=== PATIENT | female | born 1955 | race Caucasian/White ===

== ENCOUNTER 2016-09-12 15:31 | Inpatient (IN) | payer OTHER ==
[~2016-09-12] VITALS: Ht 167.6 cm; Wt 77.6 kg
[~2016-09-12 15:31] MED LIST: ASPI81TA82 PO; NOVOLOGSS SQ; PRIN5TAB PO; ZOFR4TAB3 SL
[2016-09-12 15:36] VITALS: BP 146/83; PULSE 120; RESP 22; O2SAT 100
[2016-09-12] MEDS ORDERED: SODIUM CHLOR 0.9% 1000 ML INJ 1,000 ML IV SCH (15:40)
[2016-09-12] MEDS ORDERED: SODIUM CHLORIDE 0.9% FLUSH 10 ML FLUSH IV FLUSH PRN ×2 (15:45→23:00)
[2016-09-12] MEDS ORDERED: METOCLOPRAMIDE HCL 10 MG/2 ML VIAL IV PUSH ONE (15:45)
[2016-09-12 16:11] LABS: AUTOMATED NEUTROPHIL # 5.9 TH/MM3 (1.8-7.7); BASOPHIL % 0.4 % (0.0-2.0); EOSINOPHIL % 0.3 % (0.0-4.0); HEMATOCRIT 36.2 % (35.0-46.0); HEMO FLAGS DIFF FINAL; LYMPH % 13.1 % (9.0-44.0); MEAN CELL VOLUME 101.1 FL (80.0-100.0); MEAN CORPUSCULAR HEMOGLOBIN 33.6 PG (27.0-34.0); MEAN CORPUSCULAR HGB CONC 33.2 % (32.0-36.0); NEUT % 79.2 % (16.0-70.0); PLATELET COUNT 177 TH/MM3 (150-450); RED BLOOD COUNT 3.58 MIL/MM3 (4.00-5.30); RED CELL DISTRIBUTION WIDTH 13.9 % (11.6-17.2); WHITE BLOOD COUNT 7.4 TH/MM3 (4.0-11.0)
[2016-09-12 16:26] LABS: APTT (PATIENT) 23.5 SEC (24.3-30.1); INTERNATIONAL NORMALIZED RATIO 0.9 RATIO; PROTHROMBIN TIME - PATIENT 10.3 SEC (9.8-11.6)
[2016-09-12 16:27] LABS: ANION GAP 17 MEQ/L (5-15); AST (GOT) 29 U/L (15-37); BICARBONATE 19.5 MEQ/L (21.0-32.0); BLOOD UREA NITROGEN 13 MG/DL (7-18); CHLORIDE 95 MEQ/L (98-107); GLOMERULAR FILTRATION RATE 57 ML/MIN (>89); POTASSIUM 4.4 MEQ/L (3.5-5.1); SODIUM (NA) 131 MEQ/L (136-145)
[2016-09-12 16:30] LABS: ALKALINE PHOSPHATASE 54 U/L (45-117); ALT (GPT) 25 U/L (10-53); TOTAL BILIRUBIN ADULT 1.6 MG/DL (0.2-1.0)
--- NOTE | 2016-09-12 16:32 | PD ---
HPI Chief Complaint: GI Complaint Time Seen by Provider: 15:36 Travel History International Travel<30 days: No Contact w/Intl Traveler<30days: No Traveled to known affect area: No History of Present Illness HPI Patient's 7-year-old female with a history of diabetes presents emergency Department with intractable nausea and vomiting. Patient states she's been taking Zofran at home without any relief. She states started fairly suddenly this morning. She has a history of gastroparesis. Patient denies any abdominal pain denies any fevers. On arrival she is actively retching dry heaves. She did receive Zofran in route by EMS. Denies any blood in the emesis or blood in the stool she does also endorse diarrhea. PFSH Past Medical History Cardiovascular Problems: Yes (LBBB) High Cholesterol: Yes Diabetes: Yes Patient Takes Glucophage: No Diminished Hearing: No ?: Not Menopausal: Yes Tubal Ligation: Yes Past Surgical History Section: Yes Tonsillectomy: Yes Social History Alcohol Use: Yes (OCC) Tobacco Use: No Substance Use: No Allergies-Medications (Allergen,Severity, Reaction): Coded Allergies: Iodine (Verified Allergy, Mild, Nausea/Vomiting, 07/27/15) Uncoded Allergies: SHELLFISH (Allergy, Mild, Nausea/Vomiting, 02/07/03) Reported Meds & Prescriptions Reported Meds & Active Scripts Active Zofran ODT (Ondansetron HCl) 4 Mg Tab 4 Mg SL Q6H PRN FOR NAUSEA/VOMITING Reported Novolog Insulin Supplemental Scale (Insulin Aspart) 100 /Ml Inj 1-9 Units SQ TIDACHS Max dose at bedtime:( )units; sugars less than 70, (0)units; sugars 150-199, (1)units; sugars 200-249, (3)units; sugars 250-299, (5)units; sugars 300-349,(7)units; sugars greater than 349, (9)units Aspir-81 (Aspirin) 81 Mg Tab 81 Mg PO DAILY Prinivil (Lisinopril) 5 Mg Tab 5 Mg PO DAILY Review of Systems Except as stated in HPI: all other systems reviewed are Neg Physical Exam Narrative GENERAL: Well-developed well-nourished, dry heaves. SKIN: No rash no wound. HEAD: Atraumatic. Normocephalic. EYES: Pupils equal and round. No scleral icterus. No injection or drainage. ENT: No nasal bleeding or discharge. Mucous membranes pink and moist. NECK: Trachea midline. No JVD. CARDIOVASCULAR: Regular rate and rhythm. No murmur appreciated. RESPIRATORY: No accessory muscle use. Clear to auscultation. Breath sounds equal bilaterally. GASTROINTESTINAL: Abdomen soft, non-tender, nondistended. Hepatic and splenic margins not palpable. Bowel sounds normoactive. No rebound no percussive tenderness. MUSCULOSKELETAL: No obvious deformities. No clubbing. No cyanosis. No edema. NEUROLOGICAL: Awake and alert. No obvious cranial nerve deficits. Motor grossly within normal limits. Normal speech. PSYCHIATRIC: Appropriate mood and affect; insight and judgment normal. Data Data Last Documented VS Vital Signs Date Time Temp Pulse Resp B/P Pulse Ox O2 Delivery O2 Flow Rate FiO2 09/12/16 15:45 24 09/12/16 15:36 120 146/83 100 Orders Complete Blood Count With Diff (09/12/16 15:40) Comprehensive Metabolic Panel (09/12/16 15:40) Lactic Acid (09/12/16 15:40) Prothrombin Time / Inr (Pt) (09/12/16 15:40) Act Partial Throm Time (Ptt) (09/12/16 15:40) Urinalysis - C+S If Indicated (09/12/16 15:40) Iv Access Insert/Monitor (09/12/16 15:40) Ecg Monitoring (09/12/16 15:40) Oximetry (09/12/16 15:40) Sodium Chlor 0.9% 1000 Ml Inj (Ns 1000 M (09/12/16 15:40) Sodium Chloride 0.9% Flush (Ns Flush) (09/12/16 15:45) Electrocardiogram (09/12/16 15:40) Metoclopramide Inj (Reglan Inj) (09/12/16 15:45) Ct Abd/Pel W Iv Contrast(Rout) (09/12/16 ) Diphenhydramine Inj (Benadryl Inj) (09/12/16 17:00) Methylprednisolone So Succ Inj (Solumedr (09/12/16 17:00) Sodium Chlor 0.9% 1000 Ml Inj (Ns 1000 M (09/12/16 17:00) Iohexol 350 Inj (Omnipaque 350 Inj) (09/12/16 19:13) Labs Laboratory Tests Test 09/12/16 15:52 White Blood Count 7.4 TH/MM3 Red Blood Count 3.58 MIL/MM3 Hemoglobin 12.0 GM/DL Hematocrit 36.2 % Mean Corpuscular Volume 101.1 FL Mean Corpuscular Hemoglobin 33.6 PG Mean Corpuscular Hemoglobin 33.2 % Concent Red Cell Distribution Width 13.9 % Platelet Count 177 TH/MM3 Mean Platelet Volume 9.4 FL Neutrophils (%) (Auto) 79.2 % Lymphocytes (%) (Auto) 13.1 % Monocytes (%) (Auto) 7.0 % Eosinophils (%) (Auto) 0.3 % Basophils (%) (Auto) 0.4 % Neutrophils # (Auto) 5.9 TH/MM3 Lymphocytes # (Auto) 1.0 TH/MM3 Monocytes # (Auto) 0.5 TH/MM3 Eosinophils # (Auto) 0.0 TH/MM3 Basophils # (Auto) 0.0 TH/MM3 CBC Comment DIFF FINAL Differential Comment Prothrombin Time 10.3 SEC Prothromb Time International 0.9 RATIO Ratio Activated Partial 23.5 SEC Thromboplast Time Sodium Level 131 MEQ/L Potassium Level 4.4 MEQ/L Chloride Level 95 MEQ/L Carbon Dioxide Level 19.5 MEQ/L Anion Gap 17 MEQ/L Blood Urea Nitrogen 13 MG/DL Creatinine 0.99 MG/DL Estimat Glomerular Filtration 57 ML/MIN Rate Random Glucose 216 MG/DL Lactic Acid Level 2.8 mmol/L Calcium Level 9.0 MG/DL Total Bilirubin 1.6 MG/DL Aspartate Amino Transf 29 U/L (AST/SGOT) Alanine Aminotransferase 25 U/L (ALT/SGPT) Alkaline Phosphatase 54 U/L Total Protein 7.6 GM/DL Albumin 3.9 GM/DL [facility] Medical Decision Making Medical Screen Exam Complete: Yes Emergency Medical Condition: Yes Differential Diagnosis Gastroparesis, electrolyte abnormality, dehydration, ischemic bowel is a possibility. Narrative Course Patient was roomed emergency department given a total of 2 L normal saline as well as Reglan. She is no longer retching is more comfortable but remained somewhat tachycardic after the first liter normal saline. Second liter boluses and processes. Abdomen is benign CAT scan has been ordered. Patient was discussed with Dr. Chichi Gates to follow-up CAT scan disposition the patient properly. Jose Santana MD September 12, 2016 16:32
[2016-09-12] MEDS ORDERED: diphenhydrAMINE HCL 50 MG/ML VIAL IV PUSH ONE (17:00)
[2016-09-12] MEDS ORDERED: SODIUM CHLOR 0.9% 1000 ML INJ 1,000 ML IV ONE (17:00)
[2016-09-12] MEDS ORDERED: methylPREDNISolone SOD SUCC 125 MG/2 ML VIAL IV PUSH ONE (17:00)
[2016-09-12] MEDS ORDERED: IOHEXOL 350 MG/ML 10 ML VIAL (for RAD DIAG) IV ONE (19:13)
--- NOTE | 2016-09-12 19:49 | RADRPT ---
EXAM DATE/TIME: 09/12/2016 19:08 [place] COMPARISON: No previous studies available for comparison. INDICATIONS : Lower abdomen pain today IV CONTRAST: 75 cc Omnipaque 350 (iohexol) IV ORAL CONTRAST: No oral contrast ingested. RADIATION DOSE: 9.96 CTDIvol (mGy) MEDICAL HISTORY : Gastroparesis. diabetes SURGICAL HISTORY : Tubal ligation. ENCOUNTER: Initial ACUITY: 1 day PAIN SCALE: 3/10 LOCATION: Bilateral lower quadrant TECHNIQUE: Volumetric scanning of the abdomen and pelvis was performed. Using automated exposure control and ad justment of the mA and/or kV according to patient size, radiation dose was kept as low as reasonably achievable to obtain optimal diagnostic quality images. FINDINGS: There is minimal dependent atelectasis in lungs. Mild fatty liver. Spleen, adrenals, kidneys and panc reas unremarkable, except for tiny nonobstructing calculus lower pole left kidney. No gallstones or g allbladder wall thickening. There is a mild mural thickening of the colon, predominantly the right colon no strictures, mild coli tis. Appendix is normal. No pelvic mass or adenopathy. Bladder unremarkable. CONCLUSION: 1. Mild mural thickening of the right colon most characteristic of a mild colitis. No obstruction, fr ee fluid or free air. 2. Mild fatty liver. Nonobstructing tiny left renal calculus. Riki Sánchez MD on September 12, 2016 at 19:42 Board Certified Radiologist. This report was verified electronically.
[2016-09-12] MEDS ORDERED: CIPROFLOXACIN 400 MG PREMIX 200 ML IV ONE (20:00)
[2016-09-12] MEDS ORDERED: metroNIDAZOLE 500 MG INJ 100 ML IV ONE (20:00)
--- NOTE | 2016-09-12 20:08 | PD ---
Physical Exam Date Seen by Provider: September 12, 2016 Data Data Last Documented VS Vital Signs Date Time Temp Pulse Resp B/P Pulse Ox O2 Delivery O2 Flow Rate FiO2 09/12/16 15:45 24 09/12/16 15:36 120 146/83 100 Orders Complete Blood Count With Diff (09/12/16 15:40) Comprehensive Metabolic Panel (09/12/16 15:40) Lactic Acid (09/12/16 15:40) Prothrombin Time / Inr (Pt) (09/12/16 15:40) Act Partial Throm Time (Ptt) (09/12/16 15:40) Urinalysis - C+S If Indicated (09/12/16 15:40) Iv Access Insert/Monitor (09/12/16 15:40) Ecg Monitoring (09/12/16 15:40) Oximetry (09/12/16 15:40) Sodium Chlor 0.9% 1000 Ml Inj (Ns 1000 M (09/12/16 15:40) Sodium Chloride 0.9% Flush (Ns Flush) (09/12/16 15:45) Electrocardiogram (09/12/16 15:40) Metoclopramide Inj (Reglan Inj) (09/12/16 15:45) Ct Abd/Pel W Iv Contrast(Rout) (09/12/16 ) Diphenhydramine Inj (Benadryl Inj) (09/12/16 17:00) Methylprednisolone So Succ Inj (Solumedr (09/12/16 17:00) Sodium Chlor 0.9% 1000 Ml Inj (Ns 1000 M (09/12/16 17:00) Iohexol 350 Inj (Omnipaque 350 Inj) (09/12/16 19:13) Beta Hydroxybutyrate (Acetone) (09/12/16 19:37) Ciprofloxacin 400 Mg Premix (Cipro 400 M (09/12/16 20:00) Metronidazole 500 Mg Inj (Flagyl 500 Mg (09/12/16 20:00) Labs Laboratory Tests Test 09/12/16 15:52 White Blood Count 7.4 TH/MM3 Red Blood Count 3.58 MIL/MM3 Hemoglobin 12.0 GM/DL Hematocrit 36.2 % Mean Corpuscular Volume 101.1 FL Mean Corpuscular Hemoglobin 33.6 PG Mean Corpuscular Hemoglobin 33.2 % Concent Red Cell Distribution Width 13.9 % Platelet Count 177 TH/MM3 Mean Platelet Volume 9.4 FL Neutrophils (%) (Auto) 79.2 % Lymphocytes (%) (Auto) 13.1 % Monocytes (%) (Auto) 7.0 % Eosinophils (%) (Auto) 0.3 % Basophils (%) (Auto) 0.4 % Neutrophils # (Auto) 5.9 TH/MM3 Lymphocytes # (Auto) 1.0 TH/MM3 Monocytes # (Auto) 0.5 TH/MM3 Eosinophils # (Auto) 0.0 TH/MM3 Basophils # (Auto) 0.0 TH/MM3 CBC Comment DIFF FINAL Differential Comment Prothrombin Time 10.3 SEC Prothromb Time International 0.9 RATIO Ratio Activated Partial 23.5 SEC Thromboplast Time Sodium Level 131 MEQ/L Potassium Level 4.4 MEQ/L Chloride Level 95 MEQ/L Carbon Dioxide Level 19.5 MEQ/L Anion Gap 17 MEQ/L Blood Urea Nitrogen 13 MG/DL Creatinine 0.99 MG/DL Estimat Glomerular Filtration 57 ML/MIN Rate Random Glucose 216 MG/DL Lactic Acid Level 2.8 mmol/L Calcium Level 9.0 MG/DL Total Bilirubin 1.6 MG/DL Aspartate Amino Transf 29 U/L (AST/SGOT) Alanine Aminotransferase 25 U/L (ALT/SGPT) Alkaline Phosphatase 54 U/L Total Protein 7.6 GM/DL Albumin 3.9 GM/DL [facility] Medical Record Reviewed: Yes Supervised Visit with ALEXA: No Interpretation(s) Vital Signs Date Time Temp Pulse Resp B/P Pulse Ox O2 Delivery O2 Flow Rate FiO2 09/12/16 15:45 24 09/12/16 15:36 120 22 146/83 100 Laboratory Tests Test 09/12/16 15:52 White Blood Count 7.4 TH/MM3 (4.0-11.0) Red Blood Count 3.58 MIL/MM3 (4.00-5.30) Hemoglobin 12.0 GM/DL (11.6-15.3) Hematocrit 36.2 % (35.0-46.0) Mean Corpuscular Volume 101.1 FL (80.0-100.0) Mean Corpuscular Hemoglobin 33.6 PG (27.0-34.0) Mean Corpuscular Hemoglobin 33.2 % Concent (32.0-36.0) Red Cell Distribution Width 13.9 % (11.6-17.2) Platelet Count 177 TH/MM3 (150-450) Mean Platelet Volume 9.4 FL (7.0-11.0) Neutrophils (%) (Auto) 79.2 % (16.0-70.0) Lymphocytes (%) (Auto) 13.1 % (9.0-44.0) Monocytes (%) (Auto) 7.0 % (0.0-8.0) Eosinophils (%) (Auto) 0.3 % (0.0-4.0) Basophils (%) (Auto) 0.4 % (0.0-2.0) Neutrophils # (Auto) 5.9 TH/MM3 (1.8-7.7) Lymphocytes # (Auto) 1.0 TH/MM3 (1.0-4.8) Monocytes # (Auto) 0.5 TH/MM3 (0-0.9) Eosinophils # (Auto) 0.0 TH/MM3 (0-0.4) Basophils # (Auto) 0.0 TH/MM3 (0-0.2) CBC Comment DIFF FINAL Differential Comment Prothrombin Time 10.3 SEC (9.8-11.6) Prothromb Time International 0.9 RATIO Ratio Activated Partial 23.5 SEC Thromboplast Time (24.3-30.1) Sodium Level 131 MEQ/L (136-145) Potassium Level 4.4 MEQ/L (3.5-5.1) Chloride Level 95 MEQ/L (98-107) Carbon Dioxide Level 19.5 MEQ/L (21.0-32.0) Anion Gap 17 MEQ/L (5-15) Blood Urea Nitrogen 13 MG/DL (7-18) Creatinine 0.99 MG/DL (0.50-1.00) Estimat Glomerular Filtration 57 ML/MIN (>89) Rate Random Glucose 216 MG/DL (74-106) Lactic Acid Level 2.8 mmol/L (0.4-2.0) Calcium Level 9.0 MG/DL (8.5-10.1) Total Bilirubin 1.6 MG/DL (0.2-1.0) Aspartate Amino Transf 29 U/L (15-37) (AST/SGOT) Alanine Aminotransferase 25 U/L (10-53) (ALT/SGPT) Alkaline Phosphatase 54 U/L (45-117) Total Protein 7.6 GM/DL (6.4-8.2) Albumin 3.9 GM/DL (3.4-5.0) Last Impressions Abdomen/Pelvis CT 09/12/16 0000 Signed Impressions: Service Date/Time: Monday, September 12, 2016 19:08 - CONCLUSION: 1. Mild mural thickening of the right colon most characteristic of a mild colitis. No obstruction, free fluid or free air. 2. Mild fatty liver. Nonobstructing tiny left renal calculus. Riki Sánchez MD Differential Diagnosis acute colitis Narrative Course Patient was signed out to me by Dr. Santana at [facility], pt pending CT of the abdomen and pelvis. Patient is a 61-year-old female who presents to emergency room with complaints of nausea and vomiting since this morning. Patient reports that she does have history of gastroparesis, diabetes, hypertension. Patient does see a manager leadership development, Dr. Moses in [place], she did have a recent endoscopy as well as colonoscopy which showed gastric ulcerations, she had these procedures about 1.5 months ago. While in the emergency room, patient had labs as well as CT the abdomen and pelvis. Laboratory Tests Test 09/12/16 15:52 White Blood Count 7.4 TH/MM3 (4.0-11.0) Red Blood Count 3.58 MIL/MM3 (4.00-5.30) Hemoglobin 12.0 GM/DL (11.6-15.3) Hematocrit 36.2 % (35.0-46.0) Mean Corpuscular Volume 101.1 FL (80.0-100.0) Mean Corpuscular Hemoglobin 33.6 PG (27.0-34.0) Mean Corpuscular Hemoglobin 33.2 % Concent (32.0-36.0) Red Cell Distribution Width 13.9 % (11.6-17.2) Platelet Count 177 TH/MM3 (150-450) Mean Platelet Volume 9.4 FL (7.0-11.0) Neutrophils (%) (Auto) 79.2 % (16.0-70.0) Lymphocytes (%) (Auto) 13.1 % (9.0-44.0) Monocytes (%) (Auto) 7.0 % (0.0-8.0) Eosinophils (%) (Auto) 0.3 % (0.0-4.0) Basophils (%) (Auto) 0.4 % (0.0-2.0) Neutrophils # (Auto) 5.9 TH/MM3 (1.8-7.7) Lymphocytes # (Auto) 1.0 TH/MM3 (1.0-4.8) Monocytes # (Auto) 0.5 TH/MM3 (0-0.9) Eosinophils # (Auto) 0.0 TH/MM3 (0-0.4) Basophils # (Auto) 0.0 TH/MM3 (0-0.2) CBC Comment DIFF FINAL Differential Comment Prothrombin Time 10.3 SEC (9.8-11.6) Prothromb Time International 0.9 RATIO Ratio Activated Partial 23.5 SEC Thromboplast Time (24.3-30.1) Sodium Level 131 MEQ/L (136-145) Potassium Level 4.4 MEQ/L (3.5-5.1) Chloride Level 95 MEQ/L (98-107) Carbon Dioxide Level 19.5 MEQ/L (21.0-32.0) Anion Gap 17 MEQ/L (5-15) Blood Urea Nitrogen 13 MG/DL (7-18) Creatinine 0.99 MG/DL (0.50-1.00) Estimat Glomerular Filtration 57 ML/MIN (>89) Rate Random Glucose 216 MG/DL (74-106) Lactic Acid Level 2.8 mmol/L (0.4-2.0) Calcium Level 9.0 MG/DL (8.5-10.1) Total Bilirubin 1.6 MG/DL (0.2-1.0) Aspartate Amino Transf 29 U/L (15-37) (AST/SGOT) Alanine Aminotransferase 25 U/L (10-53) (ALT/SGPT) Alkaline Phosphatase 54 U/L (45-117) Total Protein 7.6 GM/DL (6.4-8.2) Albumin 3.9 GM/DL (3.4-5.0) Lactate was 2.8. CT of the abdomen and pelvis showed Last Impressions Abdomen/Pelvis CT 09/12/16 0000 Signed Impressions: Service Date/Time: Monday, September 12, 2016 19:08 - CONCLUSION: 1. Mild mural thickening of the right colon most characteristic of a mild colitis. No obstruction, free fluid or free air. 2. Mild fatty liver. Nonobstructing tiny left renal calculus. Riki Sánchez MD Patient was given Cipro as well as Flagyl for treatment of acute colitis. Plan to admit the patient to medicine service. Case reviewed with Dr Newton who accepts pt to service Diagnosis Primary Impression: Colitis, acute Admitting Information Admitting Physician Requests: Observation Chichi Gates DO September 12, 2016 20:08
[2016-09-12 21:08] VITALS: BP 145/68; PULSE 105; RESP 14; O2SAT 97
[2016-09-12] MEDS ORDERED: MORPHINE SULFATE 4 MG/ML INJ IV PRN (23:00)
[2016-09-12] MEDS ORDERED: ONDANSETRON HCL 4 MG/2 ML VIAL IVP PRN (23:00)
[2016-09-12] MEDS ORDERED: ACETAMINOPHEN 325 MG TAB PO PRN ×2 (23:00)
[2016-09-12] MEDS ORDERED: NALOXONE HCL 0.4 MG/ML AMP IV PRN (23:00)
[2016-09-12] MEDS ORDERED: ENALAPRILAT 1.25 MG/ML VIAL IV PUSH PRN (23:15)
[2016-09-12] MEDS ORDERED: DEXTROSE 50% IN WATER 50 ML VIAL(D50) IV PUSH PRN (23:15)
[2016-09-12] MEDS ORDERED: GLUCAGON 1 MG/ML VIAL OTHER PRN (23:15)
--- NOTE | 2016-09-12 23:35 | HHI.HP ---
HPI Service [facility] Primary Care Physician No Primary Care Physician Admission Diagnosis Acute Colitis Diagnoses: Chief Complaint: N/V, diarrhea Travel History International Travel<30 Days: No Contact w/Intl Traveler <30 Da: No Traveled to Known Affected Are: No History of Present Illness The patient is a 61-year-old female with a past medical history of diabetes who is presenting to the hospital with nausea, vomiting and diarrhea. The patient said she was feeling well until 10 AM this morning where she developed the uncontrollable urge to vomit. She says that she had a fish dinner the night before and is unsure if that might be the cause. She says she had diarrhea this morning as well. She says she tends to develop diarrhea every now and then. She has been unable to eat secondary to the nausea. She denies any abdominal pain besides the cramping associated with the vomiting. She denies noticing any blood in the vomitus or diarrhea. She denied any fevers. She did endorse a bit of a headache. She says her symptoms are improved and she would like to try to eat something. Review of Systems Except as stated in HPI: all other systems reviewed are Neg Past Family Social History Past Medical History DM on insulin pump Gastroparesis HTN HLP PUD Past Surgical History C/s Tubal ligation Tonsillectomy Allergies: Coded Allergies: Iodine (Verified Allergy, Mild, Nausea/Vomiting, 07/27/15) Uncoded Allergies: SHELLFISH (Allergy, Mild, Nausea/Vomiting, 02/07/03) Active Ordered Medications Current Medications Medications (Trade) Dose Ordered Sig/Dede Route Start Time Stop Time Status Last Admin (NS 1000 ml Inj) 1,000 ml @ 100 mls/hr Q10H IV 09/12/16 22:55 (NS Flush) 2 ml UNSCH PRN IV FLUSH 09/12/16 23:00 (NS Flush) 2 ml BID IV FLUSH 09/13/16 09:00 (Tylenol) 650 mg Q4H PRN PO 09/12/16 23:00 (Zofran Inj) 4 mg Q6H PRN IVP 09/12/16 23:00 (Tylenol) 650 mg Q6H PRN PO 09/12/16 23:00 (Roxicodone) 10 mg Q4H PRN PO 09/12/16 23:00 (Morphine Inj) 4 mg Q3H PRN IV 09/12/16 23:00 (Roxicodone) 5 mg Q4H PRN PO 09/12/16 23:00 (Narcan Inj) 0.4 mg UNSCH PRN IV 09/12/16 23:00 (D50w (Vial) Inj) 25 ml UNSCH PRN IV PUSH 09/12/16 23:15 (Glucagon Inj) 1 mg UNSCH PRN OTHER 09/12/16 23:15 (Protonix) 40 mg DAILY PO 09/13/16 09:00 (Aspirin Chew) 81 mg DAILY PO 09/13/16 09:00 (Prinivil) 5 mg DAILY PO 09/13/16 09:00 Enalaprilat 1.25 mg 1.25 mg Q6H PRN IV PUSH 09/12/16 23:15 Ciprofloxacin/ Dextrose 200 ml @ 200 mls/hr Q12H IV 09/13/16 09:00 UNV (Flagyl 500 Mg Inj) 100 ml @ 100 mls/hr Q8H IV 09/13/16 05:00 UNV Family History Alzheimer's Lung cancer Diabetes Social History She does not smoke. She has social alcohol use. Physical Exam Vital Signs Vital Signs Date Time Temp Pulse Resp B/P Pulse Ox O2 Delivery O2 Flow Rate FiO2 09/12/16 21:08 105 14 145/68 97 Room Air 09/12/16 15:45 24 09/12/16 15:36 120 22 146/83 100 Physical Exam GENERAL: This is a well-nourished, well-developed patient, in no apparent distress. SKIN: No rashes, ecchymoses or lesions. Cool and dry. HEAD: Atraumatic. Normocephalic. No temporal or scalp tenderness. EYES: Pupils equal round and reactive. Extraocular motions intact. No scleral icterus. No injection or drainage. ENT: Nose without bleeding, purulent drainage or septal hematoma. Throat without erythema, tonsillar hypertrophy or exudate. Uvula midline. Airway patent. NECK: Trachea midline. No JVD or lymphadenopathy. Supple, nontender, no meningeal signs. CARDIOVASCULAR: Tachycardic without murmurs, gallops, or rubs. RESPIRATORY: Clear to auscultation. Breath sounds equal bilaterally. No wheezes , rales, or rhonchi. GASTROINTESTINAL: Abdomen soft, non-tender, nondistended. No hepato-splenomegaly , or palpable masses. No guarding. Decreased bowel sounds. MUSCULOSKELETAL: Extremities without clubbing, cyanosis, or edema. No joint tenderness, effusion, or edema noted. NEUROLOGICAL: Awake and alert. Cranial nerves II through XII intact. Motor and sensory grossly within normal limits. Five out of 5 muscle strength in all muscle groups. Normal speech. PSYCH: Mood and affect appropriate. Laboratory Laboratory Tests Test 09/12/16 09/12/16 15:52 19:50 White Blood Count 7.4 Red Blood Count 3.58 Hemoglobin 12.0 Hematocrit 36.2 Mean Corpuscular Volume 101.1 Mean Corpuscular Hemoglobin 33.6 Mean Corpuscular Hemoglobin 33.2 Concent Red Cell Distribution Width 13.9 Platelet Count 177 Mean Platelet Volume 9.4 Neutrophils (%) (Auto) 79.2 Lymphocytes (%) (Auto) 13.1 Monocytes (%) (Auto) 7.0 Eosinophils (%) (Auto) 0.3 Basophils (%) (Auto) 0.4 Neutrophils # (Auto) 5.9 Lymphocytes # (Auto) 1.0 Monocytes # (Auto) 0.5 Eosinophils # (Auto) 0.0 Basophils # (Auto) 0.0 CBC Comment DIFF FINAL Differential Comment Prothrombin Time 10.3 Prothromb Time International 0.9 Ratio Activated Partial 23.5 Thromboplast Time Sodium Level 131 Potassium Level 4.4 Chloride Level 95 Carbon Dioxide Level 19.5 Anion Gap 17 Blood Urea Nitrogen 13 Creatinine 0.99 Estimat Glomerular Filtration 57 Rate Random Glucose 216 Lactic Acid Level 2.8 Calcium Level 9.0 Total Bilirubin 1.6 Aspartate Amino Transf 29 (AST/SGOT) Alanine Aminotransferase 25 (ALT/SGPT) Alkaline Phosphatase 54 Total Protein 7.6 Albumin 3.9 B-Hydroxybutyrate 2.87 Result Diagram: 09/12/16 1552 09/12/16 1552 Imaging Last Impressions Abdomen/Pelvis CT 09/12/16 0000 Signed Impressions: Service Date/Time: Monday, September 12, 2016 19:08 - CONCLUSION: 1. Mild mural thickening of the right colon most characteristic of a mild colitis. No obstruction, free fluid or free air. 2. Mild fatty liver. Nonobstructing tiny left renal calculus. Riki Sánchez MD Assessment and Plan Assessment and Plan DKA/ Lactic acidosis The pt developed N/V/D and was found to have colitis. She is on an insulin pump. She has a lactic acid level of 2.8 and a beta hydroxybutyric acid level of 2.87. Nausea is resolving. - ADAT. - antiemetics as needed. - insulin sliding scale. Continue insulin pump. - follow lactic acid level. - telemetry. Colitis CT abdomen revealed: Mild mural thickening of the right colon most characteristic of a mild colitis; No obstruction, free fluid or free air; Mild fatty liver; Nonobstructing tiny left renal calculus. - continue Cipro and Flagyl. - check stool studies. Hyponatremia Likely secondary to decreased by mouth intake and vomiting. - IV fluids. - Continue to monitor. HTN Blood pressure reasonably controlled. - continue home meds. - Vasotec as needed. PPx: SCDs, PPI. Code Status Full. Discussed Condition With Pt, Dr. Gates. Christopher Salinas DO September 12, 2016 23:35
[2016-09-13] MEDS: SODIUM CHLOR 0.9% 1000 ML INJ 1,000 ML IV SCH ×2 (00:02→07:50)
[2016-09-13 01:12] VITALS: BP 114/58; PULSE 109; RESP 16; TEMP 99.5; O2SAT 94
[2016-09-13 04:30] VITALS: BP 128/61; PULSE 106; RESP 16; TEMP 97.9; O2SAT 97
[2016-09-13 06:00] VITALS: PULSE 109
[2016-09-13] MEDS: metroNIDAZOLE 500 MG INJ 100 ML IV SCH ×2 (06:00→13:27)
[2016-09-13] MEDS: INSULIN ASPART SUPPLEMENTAL SCALE SQ SCH ×3 (06:35→15:18)
[2016-09-13 08:38] VITALS: BP 109/53; PULSE 111; RESP 16; TEMP 97.9; O2SAT 95
[2016-09-13] MEDS ORDERED: CIPROFLOXACIN 400 MG PREMIX 200 ML IV SCH (09:00)
[2016-09-13] MEDS ORDERED: LISINOPRIL 5 MG TAB PO SCH (09:00)
[2016-09-13] MEDS ORDERED: SODIUM CHLORIDE 0.9% FLUSH 10 ML FLUSH IV FLUSH SCH (09:00)
[2016-09-13] MEDS ORDERED: PANTOPRAZOLE SOD 40 MG DELAYED RELEASE TAB PO SCH (09:00)
[2016-09-13] MEDS ORDERED: ASPIRIN 81 MG CHEW TAB PO SCH (09:00)
[2016-09-13 11:18] LABS: BLOOD, URINE NEG (NEG); COMMENT (UR) CULT NOT INDICATED; CULTURE IF INDICATED CULT NOT INDICATED; GLUCOSE,URINE 1000 mg/dL (NEG); KETONE, URINE 150 mg/dL (NEG); NITRITE,URINE NEG (NEG); PH, URINE 5.5 (5.0-8.5); SQUAMOUS EPITHELIAL CELL URINE 1 /hpf (0-5); URINE COLOR YELLOW (YELLW/STRAW)
[2016-09-13 11:33] LABS: AUTOMATED NEUTROPHIL # 7.9 TH/MM3 (1.8-7.7); BASOPHIL % 0.2 % (0.0-2.0); HEMATOCRIT 35.1 % (35.0-46.0); HEMO FLAGS DIFF FINAL; LYMPH % 10.6 % (9.0-44.0); MEAN CELL VOLUME 102.9 FL (80.0-100.0); MEAN CORPUSCULAR HEMOGLOBIN 33.7 PG (27.0-34.0); MEAN CORPUSCULAR HGB CONC 32.7 % (32.0-36.0); MONO % 4.9 % (0.0-8.0); NEUT % 84.3 % (16.0-70.0); PLATELET COUNT 169 TH/MM3 (150-450); RED BLOOD COUNT 3.42 MIL/MM3 (4.00-5.30); RED CELL DISTRIBUTION WIDTH 14.4 % (11.6-17.2); WHITE BLOOD COUNT 9.4 TH/MM3 (4.0-11.0)
[2016-09-13 12:20] LABS: ALKALINE PHOSPHATASE 48 U/L (45-117); ALT (GPT) 21 U/L (10-53); ANION GAP 18 MEQ/L (5-15); AST (GOT) 28 U/L (15-37); BICARBONATE 13.9 MEQ/L (21.0-32.0); BLOOD UREA NITROGEN 19 MG/DL (7-18); CHLORIDE 98 MEQ/L (98-107); GLOMERULAR FILTRATION RATE 53 ML/MIN (>89); SODIUM (NA) 130 MEQ/L (136-145); TOTAL BILIRUBIN ADULT 1.3 MG/DL (0.2-1.0)
[2016-09-13 12:21] LABS: POTASSIUM 5.3 MEQ/L (3.5-5.1)
[2016-09-13 12:42] VITALS: BP 116/76; PULSE 107; RESP 16; TEMP 97; O2SAT 98
--- NOTE | 2016-09-13 13:12 | HHI.PR ---
Subjective Remarks Patient seen for f/u DKA and colitis. 09/13/16-patient seen this afternoon. No acute events overnight. Vitals are essentially WNL. Libby states she feels well and wants to go home. She understands blood glucose remains significantly elevated with elevated anion gap and no evidence ketonemia has resolved. Understands risks of untreated DKA, including coma and even . She has been refusing ss insulin, states she is "afraid of what would happen" with her pump. No complaints of F/C, CP, SOB, dizziness, ab pain, or N/V this AM. Tolerating PO diet. Objective Vitals Vital Signs Date Time Temp Pulse Resp B/P Pulse Ox O2 Delivery O2 Flow Rate FiO2 09/13/16 12:42 97.0 107 16 116/76 98 09/13/16 08:38 97.9 111 16 109/53 95 09/13/16 06:00 109 09/13/16 04:30 97.9 106 16 128/61 97 09/13/16 01:12 99.5 109 16 114/58 94 09/12/16 21:08 105 14 145/68 97 Room Air 09/12/16 15:45 24 09/12/16 15:36 120 22 146/83 100 I/O 09/12/16 09/12/16 09/12/16 09/13/16 09/13/16 09/13/16 06:59 14:59 22:59 06:59 14:59 22:59 Intake Total 235 ml Output Total 100 ml Balance -100 ml 235 ml Intake IV Total 235 ml Output Emesis 100 ml # Voids 1 Result Diagram: 09/13/16 1115 09/13/16 1111 Objective Remarks GENERAL: Well-appearing. Sitting up in chair this AM. In NAD. SKIN: No rashes, ecchymoses or lesions. Cool and dry. CARDIOVASCULAR: RRR. No murmurs. RESPIRATORY: Clear to auscultation. Breath sounds equal bilaterally. No wheezes , rales, or rhonchi. GASTROINTESTINAL: Abdomen soft, non-tender, nondistended. No hepato-splenomegaly , or palpable masses. No guarding. Decreased bowel sounds. MUSCULOSKELETAL: Extremities without clubbing, cyanosis, or edema. No joint tenderness, effusion, or edema noted. NEUROLOGICAL: Awake and alert. Cranial nerves II through XII intact. Motor and sensory grossly within normal limits. Five out of 5 muscle strength in all muscle groups. Normal speech. PSYCH: Mood and affect appropriate. A/P Problem List: (1) Colitis, acute ICD Code: K52.9 Status: Acute (2) DKA (diabetic ketoacidoses) ICD Code: E13.10 Status: Acute (3) Hyponatremia ICD Code: E87.1 Status: Acute (4) Nausea & vomiting ICD Code: R11.2 Status: Acute (5) Hypertension ICD Code: I10 Status: Acute Assessment and Plan DKA/ Lactic acidosis: the pt developed N/V/D and was found to have colitis. She is on an insulin pump. She has a lactic acid level of 2.8 and a beta hydroxybutyric acid level of 2.87. - patient on insulin ss, but apparently refusing. Still has anion gap and no evidence ketonemia has resolved. Will check stat BMP and ketones. Stat accuchek before labs back. Will attempt sub-Q tx if still meets criteria for DKA. Cont insulin pump. - nausea is resolving. Antiemetics as needed. - follow lactic acid level. Will add repeat level for today along with above labs. - telemetry. Colitis: CT abdomen revealed mild mural thickening of the right colon most characteristic of a mild colitis; No obstruction, free fluid or free air; Mild fatty liver; Nonobstructing tiny left renal calculus. - continue Cipro and Flagyl. - check stool studies + C. diff toxin Hyponatremia: Likely secondary to decreased by mouth intake and vomiting. - sodium today is 130 (133 when corrected for hyperglycemia) - IV fluids. - Continue to monitor. HTN: Blood pressure reasonably controlled. - continue home meds. - Vasotec as needed. PPx: SCDs, PPI. Discharge Planning Per discussion with patient, should remain admitted until resolution of DKA. She understands if she leaves today it will be AMA. Jus Ochoa MD R3 September 13, 2016 13:12
[2016-09-13] MEDS ORDERED: METR-1 PO (14:56)
[2016-09-13] MEDS ORDERED: CIPR-9 PO (14:56)
--- NOTE | 2016-09-13 15:09 | EKG ---
Date Performed: 09/12/2016 Time Performed: 15:57:46 PTAGE: 61 years EKG: SINUS TACHYCARDIA LEFT BUNDLE BRANCH BLOCK ABNORMAL ECG Compared to prior tracing no signif icant change PREVIOUS TRACING : 07/27/2015 22.27 DOCTOR: Mario Vasquez Interpretating Date/Time 09/13/2016 15:08:06
[2016-09-13 16:50] LABS: C. DIFF EPI 027 PRESUMPTIVE NEGATIVE (NEGATIVE); C. DIFF TOXIN PCR NEGATIVE (NEGATIVE)
--- NOTE | 2016-09-13 18:50 | PD.AMA ---
Against Medical Advice Note Diagnosis: (1) DKA (diabetic ketoacidoses) (2) Colitis, acute Discharge Disposition: Against Medical Advice Pt Condition on Discharge: Stable AMA Statement Patient Libby Erickson has decided to leave the hospital against medical advice. This patient has the capacity to refuse care and understands the risks of leaving, including permanent disability and/or , and has had an opportunity to ask questions about her condition. The patient has been informed that she may return for care at any time, and follow up has been arranged/ advised. Jus Ochoa MD R3 September 13, 2016 18:50
[2016-09-14 01:38] LABS: BICARBONATE 21.1 MEQ/L (21.0-32.0); POTASSIUM 5.1 MEQ/L (3.5-5.1)
== END 2016-09-13 18:39 | disposition left against medical advice (07) | DRG 391 ==
LOC: NEPE 15:31 → NEDA 20:21 → OBSVTOIN 23:35 → N05B 09-13 01:01
PROVIDERS: ADMIT Hospitalist; ATTEND Hospitalist
DX: K52.9 Noninfective gastroenteritis and colitis, unspecified (principal); E13.10 Other specified diabetes mellitus with ketoacidosis without coma; E87.1 Hypo-osmolality and hyponatremia; K31.84 Gastroparesis; Z79.4 Long term (current) use of insulin; Z96.41 Presence of insulin pump (external) (internal); I10 Essential (primary) hypertension; Z87.11 Personal history of peptic ulcer disease; E78.5 Hyperlipidemia, unspecified; Z79.82 Long term (current) use of aspirin
CPT/HCPCS: 74177; 80048; 80053; 81001; 82010; 82948; 83605; 83690; 85025; 85610; 85730; 87328; 87329; 87493; 87506; 93005; 96374; 96375; J0744; J1200; J1815; J2765; J2930; J7030; Q9967

== ENCOUNTER 2016-11-14 10:22 | Emergency (ER) | payer OTHER ==
[~2016-11-14] VITALS: Ht 167.6 cm; Wt 72.0 kg
[~2016-11-14 10:22] MED LIST changes: +CIPR-9 PO; +METR-1 PO
[2016-11-14 10:25] VITALS: BP 162/94; PULSE 107; RESP 20; TEMP 97.8; O2SAT 100
[2016-11-14] MEDS ORDERED: NOVOLOGMXP SQ (10:39)
[2016-11-14] MEDS ORDERED: ATOR10TA15 PO (10:39)
[2016-11-14] MEDS ORDERED: LISI-519 PO (10:39)
[2016-11-14] MEDS ORDERED: MOTILIUM PO (10:39)
[2016-11-14] MEDS ORDERED: OMEP20TA PO (10:39)
[2016-11-14] MEDS ORDERED: ONDANSETRON HCL 4 MG/2 ML VIAL IVP ONE (10:45)
[2016-11-14] MEDS ORDERED: SODIUM CHLOR 0.9% 1000 ML INJ 1,000 ML IV ONE (10:45)
[2016-11-14] MEDS ORDERED: LORazepam 2 MG/ML VIAL IV PUSH ONE (10:45)
--- NOTE | 2016-11-14 10:49 | PD ---
HPI Chief Complaint: GI Complaint Time Seen by Provider: 10:40 Travel History International Travel<30 days: No Contact w/Intl Traveler<30days: No Traveled to known affect area: No History of Present Illness HPI The patient was seen and examined in the presence of the nurse. This patient complains of nausea and vomiting and diarrhea. Duration 3 hours. Severity is moderate. No abdominal pain or presyncopal symptoms. She is insulin dependent diabetic and has an insulin pump. Accu-Chek right now is 213. She denies fever. She has history of diabetic gastroparesis. No alleviating factors. PFSH Past Medical History Arthritis: No Asthma: No Heart Rhythm Problems: No Cancer: No Cardiovascular Problems: Yes High Cholesterol: Yes Chest Pain: No Congestive Heart Failure: No COPD: No Cerebrovascular Accident: No Diabetes: Yes Diminished Hearing: No Endocrine: No GERD: Yes Genitourinary: No Hiatal Hernia: No Kidney Stones: No Musculoskeletal: No Neurologic: No Psychiatric: No Reproductive: No Respiratory: No Migraines: No Renal Failure: No Seizures: No Sickle Cell Disease: No Sleep Apnea: Yes Ulcer: No ?: Not Menopausal: Yes Tubal Ligation: Yes Past Surgical History AICD: No Arteriovenous Shunt: No Cardiac Surgery: No Section: Yes Ear Surgery: No Endocrine Surgery: No Eye Surgery: No Genitourinary Surgery: No Gynecologic Surgery: Yes Insulin Pump: Yes Joint Replacement: No Oral Surgery: No Pacemaker: No Thoracic Surgery: No Tonsillectomy: Yes Social History Alcohol Use: Yes (OCC) Tobacco Use: No Substance Use: No Allergies-Medications (Allergen,Severity, Reaction): Coded Allergies: Iodine (Verified Allergy, Mild, Nausea/Vomiting, 11/14/16) Uncoded Allergies: SHELLFISH (Allergy, Mild, Nausea/Vomiting, 02/07/03) Reported Meds & Prescriptions Reported Meds & Active Scripts Active Zofran (Ondansetron HCl) 4 Mg Tab 4 Mg PO Q6HR PRN Reported [Motilium] 1 Tab PO DAILY Atorvastatin (Atorvastatin Calcium) 10 Mg Tab 10 Mg PO HS Novolog Mix 70/30 Inj (Insulin Aspart Prota 70%/Aspart 30%) 1,000 Units/10 Ml Inj 1 Unit SQ CONTINUOUS Lisinopril 5 Mg Tab 5 Mg PO DAILY Omeprazole 20 Mg Tab 20 Mg PO DAILY Review of Systems General / Constitutional: No: Fever Eyes: No: Visual changes HENT: No: Headaches Cardiovascular: No: Chest Pain or Discomfort Respiratory: No: Shortness of Breath Gastrointestinal: Positive: Nausea, Vomiting, Diarrhea, No: Abdominal Pain Genitourinary: No: Dysuria Musculoskeletal: No: Pain Skin: No Rash Neurologic: No: Weakness Psychiatric: No: Depression Endocrine: No: Polydipsia Hematologic/Lymphatic: No: Easy Bruising Physical Exam Narrative GENERAL: Well-nourished, well-developed patient with nausea . SKIN: Focused skin assessment reveals no rash and nodules. Skin is Warm and dry. HEAD: Atraumatic. Normocephalic. EYES: Pupils equal and round. No scleral icterus. No injection or drainage. ENT: No nasal bleeding or discharge. Mucous membranes pink and moist. NECK: Trachea midline. No JVD. CARDIOVASCULAR: Regular rate and rhythm. No murmur appreciated. RESPIRATORY: No accessory muscle use. Clear to auscultation. Breath sounds equal bilaterally. GASTROINTESTINAL: Abdomen soft, non-tender, nondistended. Hepatic and splenic margins not palpable. MUSCULOSKELETAL: No obvious deformities. No clubbing. No cyanosis. No edema. NEUROLOGICAL: Awake and alert. No obvious cranial nerve deficits. Motor grossly within normal limits. Normal speech. PSYCHIATRIC: Very anxious mood and affect; insight and judgment normal. Data Data Last Documented VS Vital Signs Date Time Temp Pulse Resp B/P Pulse Ox O2 Delivery O2 Flow Rate FiO2 11/14/16 11:07 106 20 156/75 97 Room Air 11/14/16 10:25 97.8 Orders Iv Access Insert/Monitor (11/14/16 10:45) Complete Blood Count With Diff (11/14/16 10:45) Basic Metabolic Panel (Bmp) (11/14/16 10:45) Ondansetron Inj (Zofran Inj) (11/14/16 10:45) Sodium Chlor 0.9% 1000 Ml Inj (Ns 1000 M (11/14/16 10:45) Lorazepam Inj (Ativan Inj) (11/14/16 10:45) Labs Laboratory Tests Test 11/14/16 10:57 White Blood Count 7.6 TH/MM3 Red Blood Count 3.77 MIL/MM3 Hemoglobin 12.9 GM/DL Hematocrit 37.7 % Mean Corpuscular Volume 100.0 FL Mean Corpuscular Hemoglobin 34.2 PG Mean Corpuscular Hemoglobin 34.2 % Concent Red Cell Distribution Width 14.6 % Platelet Count 191 TH/MM3 Mean Platelet Volume 8.1 FL Neutrophils (%) (Auto) 78.6 % Lymphocytes (%) (Auto) 13.8 % Monocytes (%) (Auto) 6.4 % Eosinophils (%) (Auto) 0.3 % Basophils (%) (Auto) 0.9 % Neutrophils # (Auto) 6.0 TH/MM3 Lymphocytes # (Auto) 1.0 TH/MM3 Monocytes # (Auto) 0.5 TH/MM3 Eosinophils # (Auto) 0.0 TH/MM3 Basophils # (Auto) 0.1 TH/MM3 CBC Comment DIFF FINAL Differential Comment Sodium Level 134 MEQ/L Potassium Level 4.6 MEQ/L Chloride Level 97 MEQ/L Carbon Dioxide Level 19.1 MEQ/L Anion Gap 18 MEQ/L Blood Urea Nitrogen 12 MG/DL Creatinine 1.10 MG/DL Estimat Glomerular Filtration 51 ML/MIN Rate Random Glucose 238 MG/DL Calcium Level 9.7 MG/DL MDM Medical Decision Making Medical Screen Exam Complete: Yes Emergency Medical Condition: Yes Medical Record Reviewed: Yes Differential Diagnosis Gastroenteritis, gastroparesis, ileus, colitis Narrative Course I have reviewed the patient's electronic medical record. Patient was here August 2016 diagnosed with a mild colitis on CT scan IV placed CBC is normal Metabolic profile shows minor abnormalities but nothing emergent. I gave her IV Zofran and IV Ativan I gave her 1 L normal saline IV bolus On recheck she feels much better. Has had no vomiting here. I prescribed her Zofran which gives her good relief but she is needing more The patient was advised to follow up with their physician and return if they worsen. Diagnosis Primary Impression: Nausea & vomiting Qualified Code: R11.2 - Non-intractable vomiting with nausea, unspecified vomiting type Additional Impressions: Diarrhea Qualified Code: R19.7 - Diarrhea, unspecified type Diabetes Qualified Code: E10.8 - Type 1 diabetes mellitus with complication Additional Instructions: The patient was advised to follow up with their physician and return if they worsen. I have recommended clear liquids for 24 hours, then gradually advance as tolerated. Med/Other Pt SpecificInfo: Prescription(s) given Scripts Ondansetron (Zofran)4 Mg Tab4 Mg PO Q6HR PRN (NAUSEA OR VOMITING) #20 TAB Ref 0 Prov:Kocisko,El J. MD 11/14/16 Disposition: 01 DISCHARGE HOME Condition: Stable El Squires MD Nov 14, 2016 10:49
[2016-11-14 11:05] LABS: BASOPHIL # 0.1 TH/MM3 (0-0.2); BASOPHIL % 0.9 % (0.0-2.0); EOSINOPHIL % 0.3 % (0.0-4.0); HEMATOCRIT 37.7 % (35.0-46.0); HEMO FLAGS DIFF FINAL; LYMPH % 13.8 % (9.0-44.0); MEAN CORPUSCULAR HEMOGLOBIN 34.2 PG (27.0-34.0); MEAN CORPUSCULAR HGB CONC 34.2 % (32.0-36.0); MONO % 6.4 % (0.0-8.0); NEUT % 78.6 % (16.0-70.0); PLATELET COUNT 191 TH/MM3 (150-450); RED BLOOD COUNT 3.77 MIL/MM3 (4.00-5.30); RED CELL DISTRIBUTION WIDTH 14.6 % (11.6-17.2); WHITE BLOOD COUNT 7.6 TH/MM3 (4.0-11.0)
[2016-11-14 11:07] VITALS: BP 156/75; PULSE 106; RESP 20; O2SAT 97
[2016-11-14 11:10] LABS: POTASSIUM 4.6 MEQ/L (3.5-5.1)
[2016-11-14 11:13] LABS: BICARBONATE 19.1 MEQ/L (21.0-32.0)
[2016-11-14] MEDS ORDERED: ZOFR4TAB PO (11:28)
[2016-11-14 12:26] VITALS: BP 142/84
== END 2016-11-14 12:28 | disposition home or self-care (01) ==
LOC: PHED 10:22
DX: R11.2 Nausea with vomiting, unspecified (principal); R19.7 Diarrhea, unspecified; K21.9 Gastro-esophageal reflux disease without esophagitis; E10.43 Type 1 diabetes mellitus with diabetic autonomic (poly)neuropathy; K31.84 Gastroparesis; Z79.4 Long term (current) use of insulin; Z96.41 Presence of insulin pump (external) (internal)
CPT/HCPCS: 80048; 85025; 96361; 96374; 96375; 99284; J2060; J2405; J7030

== ENCOUNTER 2017-07-06 19:55 | Emergency (ER) | payer OTHER ==
[~2017-07-06] VITALS: Ht 167.6 cm; Wt 80.0 kg
[~2017-07-06 19:55] MED LIST changes: -ASPI81TA82 PO; +ATOR10TA15 PO; -CIPR-9 PO; +LISI-519 PO; -METR-1 PO; +MOTILIUM PO; +NOVOLOGMXP SQ; -NOVOLOGSS SQ; +OMEP20TA93 PO; -PRIN5TAB PO; +ZOFR4TAB PO; -ZOFR4TAB3 SL
[2017-07-06 20:31] VITALS: BP 178/91; PULSE 98; RESP 20; TEMP 98; O2SAT 99
[2017-07-06] MEDS ORDERED: ONDANSETRON HCL 4 MG/2 ML VIAL IV PUSH ONE (21:00)
[2017-07-06] MEDS ORDERED: SODIUM CHLOR 0.9% 1000 ML INJ 1,000 ML IV SCH (21:55)
[2017-07-06 22:00] VITALS: O2SAT 98
[2017-07-06] MEDS ORDERED: SODIUM CHLORIDE 0.9% FLUSH 10 ML FLUSH IV FLUSH PRN (22:00)
[2017-07-06] MEDS ORDERED: METOCLOPRAMIDE INJ 10 MG in SODIUM CHLORIDE 0.9% INJ 50 ML IV ONE (22:00)
[2017-07-06 22:29] LABS: AUTOMATED NEUTROPHIL # 5.7 TH/MM3 (1.8-7.7); BASOPHIL # 0.1 TH/MM3 (0-0.2); BASOPHIL % 0.9 % (0.0-2.0); EOSINOPHIL % 0.5 % (0.0-4.0); HEMATOCRIT 34.6 % (35.0-46.0); HEMOGLOBIN 11.5 GM/DL (11.6-15.3); LYMPH % 18.9 % (9.0-44.0); LYMPHOCYTE # 1.5 TH/MM3 (1.0-4.8); MEAN CELL VOLUME 100.7 FL (80.0-100.0); MEAN CORPUSCULAR HEMOGLOBIN 33.4 PG (27.0-34.0); MEAN CORPUSCULAR HGB CONC 33.2 % (32.0-36.0); MEAN PLATELET VOLUME 8.7 FL (7.0-11.0); MONO % 9.1 % (0.0-8.0); MONOCYTE # 0.7 TH/MM3 (0-0.9); NEUT % 70.6 % (16.0-70.0); PLATELET COUNT 166 TH/MM3 (150-450); RED BLOOD COUNT 3.44 MIL/MM3 (4.00-5.30); RED CELL DISTRIBUTION WIDTH 13.8 % (11.6-17.2)
[2017-07-06 22:36] LABS: ALBUMIN 3.8 GM/DL (3.4-5.0); CALCIUM 8.7 MG/DL (8.5-10.1)
[2017-07-06 22:38] LABS: DIRECT BILIRUBIN ADULT 0.3 MG/DL (0.0-0.2); INTERNATIONAL NORMALIZED RATIO 1.1 RATIO; PROTHROMBIN TIME - PATIENT 10.7 SEC (9.8-11.6)
[2017-07-06 22:39] LABS: CREATININE 0.92 MG/DL (0.50-1.00)
[2017-07-06 22:40] LABS: INDIRECT BILIRUBIN 0.8 MG/DL (0.0-0.8); TOTAL BILIRUBIN ADULT 1.1 MG/DL (0.2-1.0); TOTAL PROTEIN 7.4 GM/DL (6.4-8.2)
[2017-07-06] MEDS ORDERED: REGL10TA5 PO (23:53)
--- NOTE | 2017-07-06 23:53 | PD ---
HPI Chief Complaint: GI Complaint Time Seen by Provider: 21:48 Travel History International Travel<30 days: No Contact w/Intl Traveler<30days: No Traveled to known affect area: No History of Present Illness HPI Patient is a 62-year-old female with a history of diabetes and gastroparesis, who comes in complaining of nausea and vomiting. She says it started earlier today and has been getting worse. She has been trying to take her medications at home without relief. She says this feels like typical gastroparesis for her. She denies any abdominal pain. She says she had an episode of diarrhea this morning. She denies fever chills. She says that Reglan usually helps with the gastroparesis. Severity is moderate. PFSH Past Medical History Arthritis: No Asthma: No Heart Rhythm Problems: No Cancer: No Cardiovascular Problems: Yes High Cholesterol: Yes Chest Pain: No Congestive Heart Failure: No COPD: No Cerebrovascular Accident: No Diabetes: Yes (HAS PUMP) Patient Takes Glucophage: No Diminished Hearing: No Endocrine: No GERD: Yes Genitourinary: No Hiatal Hernia: No Hypertension: Yes Kidney Stones: No Musculoskeletal: No Neurologic: No Psychiatric: No Reproductive: No Respiratory: No Migraines: No Renal Failure: No Seizures: No Sickle Cell Disease: No Sleep Apnea: Yes Ulcer: No Tetanus Vaccination: < 5 Years ?: Not Menopausal: Yes Tubal Ligation: Yes Past Surgical History AICD: No Arteriovenous Shunt: No Cardiac Surgery: No Section: Yes Ear Surgery: No Endocrine Surgery: No Eye Surgery: No Genitourinary Surgery: No Gynecologic Surgery: Yes Insulin Pump: Yes Joint Replacement: No Oral Surgery: No Pacemaker: No Thoracic Surgery: No Tonsillectomy: Yes Other Surgery: Yes Social History Alcohol Use: Yes ([facility]) Tobacco Use: No Substance Use: No Allergies-Medications (Allergen,Severity, Reaction): Coded Allergies: iodine (Unverified Allergy, Mild, Nausea/Vomiting, 07/06/17) potassium iodide (Unverified Allergy, Mild, Nausea/Vomiting, 07/06/17) povidone-iodine (Unverified Allergy, Mild, Nausea/Vomiting, 07/06/17) sodium iodide (Unverified Allergy, Mild, Nausea/Vomiting, 07/06/17) sodium iodide (Unverified Allergy, Mild, Nausea/Vomiting, 07/06/17) Uncoded Allergies: SHELLFISH (Allergy, Mild, Nausea/Vomiting, 02/07/03) Reported Meds & Prescriptions Reported Meds & Active Scripts Active Zofran (Ondansetron HCl) 4 Mg Tab 4 Mg PO Q6HR PRN Reported [Motilium] 1 Tab PO DAILY Atorvastatin (Atorvastatin Calcium) 10 Mg Tab 10 Mg PO HS Novolog Mix 70/30 Inj (Insulin Aspart Prota 70%/Aspart 30%) 1,000 Units/10 Ml Inj 1 Unit SQ CONTINUOUS Lisinopril 5 Mg Tab 5 Mg PO DAILY Omeprazole 20 Mg Tab 20 Mg PO DAILY Review of Systems Except as stated in HPI: all other systems reviewed are Neg General / Constitutional: No: Fever, Chills HENT: No: Headaches, Lightheadedness Cardiovascular: No: Chest Pain or Discomfort Respiratory: No: Shortness of Breath Gastrointestinal: Positive: Nausea, Vomiting, No: Abdominal Pain Genitourinary: No: Dysuria Musculoskeletal: No: Myalgias Skin: No Rash, No Change in Pigmentation Neurologic: No: Weakness, Dizziness Physical Exam Narrative GENERAL: Awake and alert, in mild distress due to vomiting. SKIN: Focused skin assessment warm/dry. HEAD: Atraumatic. Normocephalic. EYES: Pupils equal and round. No scleral icterus. ENT: Mucous membranes pink and moist. NECK: Trachea midline. No JVD. CARDIOVASCULAR: Regular rate and rhythm. No murmur appreciated. RESPIRATORY: No accessory muscle use. Clear to auscultation. Breath sounds equal bilaterally. GASTROINTESTINAL: Abdomen soft, non-tender, nondistended. MUSCULOSKELETAL: No obvious deformities. No clubbing. No cyanosis. No edema. NEUROLOGICAL: Awake and alert. No obvious cranial nerve deficits. Motor grossly within normal limits. Normal speech. PSYCHIATRIC: Appropriate mood and affect; insight and judgment normal. Data Data Last Documented VS Vital Signs Date Time Temp Pulse Resp B/P (MAP) Pulse Ox O2 Delivery O2 Flow Rate FiO2 07/06/17 20:31 98.0 98 20 178/91 (120) 99 Orders Orders Ondansetron Inj (Zofran Inj) (07/06/17 21:00) Basic Metabolic Panel (Bmp) (07/06/17 21:55) Complete Blood Count With Diff (07/06/17 21:55) Lipase (07/06/17 21:55) Prothrombin Time / Inr (Pt) (07/06/17 21:55) Act Partial Throm Time (Ptt) (07/06/17 21:55) Urinalysis - C+S If Indicated (07/06/17:55) Iv Access Insert/Monitor (07/06/17 21:55) Ecg Monitoring (07/06/17 21:55) Oximetry (07/06/17 21:55) Sodium Chlor 0.9% 1000 Ml Inj (Ns 1000 M (07/06/17 21:55) Sodium Chloride 0.9% Flush (Ns Flush) (07/06/17 22:00) Hepatic Functional Panel (07/06/17:55) Beta Hydroxybutyrate (Acetone) (07/06/17 21:55) Metoclopramide Inj (Reglan Inj) (07/06/17 22:00) Labs Laboratory Tests Test 07/06/17 22:04 White Blood Count 8.0 TH/MM3 Red Blood Count 3.44 MIL/MM3 Hemoglobin 11.5 GM/DL Hematocrit 34.6 % Mean Corpuscular Volume 100.7 FL Mean Corpuscular Hemoglobin 33.4 PG Mean Corpuscular Hemoglobin Concent 33.2 % Red Cell Distribution Width 13.8 % Platelet Count 166 TH/MM3 Mean Platelet Volume 8.7 FL Neutrophils (%) (Auto) 70.6 % Lymphocytes (%) (Auto) 18.9 % Monocytes (%) (Auto) 9.1 % Eosinophils (%) (Auto) 0.5 % Basophils (%) (Auto) 0.9 % Neutrophils # (Auto) 5.7 TH/MM3 Lymphocytes # (Auto) 1.5 TH/MM3 Monocytes # (Auto) 0.7 TH/MM3 Eosinophils # (Auto) 0.0 TH/MM3 Basophils # (Auto) 0.1 TH/MM3 CBC Comment DIFF FINAL Differential Comment Prothrombin Time 10.7 SEC Prothromb Time International Ratio 1.1 RATIO Activated Partial Thromboplast Time 23.3 SEC Blood Urea Nitrogen 9 MG/DL Creatinine 0.92 MG/DL Random Glucose 192 MG/DL Total Protein 7.4 GM/DL Albumin 3.8 GM/DL Calcium Level 8.7 MG/DL Alkaline Phosphatase 63 U/L Aspartate Amino Transf (AST/SGOT) 34 U/L Alanine Aminotransferase (ALT/SGPT) 28 U/L Total Bilirubin 1.1 MG/DL Direct Bilirubin 0.3 MG/DL Sodium Level 134 MEQ/L Potassium Level 4.0 MEQ/L Chloride Level 102 MEQ/L Carbon Dioxide Level 23.0 MEQ/L Anion Gap 9 MEQ/L Estimat Glomerular Filtration Rate 62 ML/MIN Indirect Bilirubin 0.8 MG/DL Lipase 66 U/L B-Hydroxybutyrate 1.05 MMOL/L MDM Medical Decision Making Medical Screen Exam Complete: Yes Emergency Medical Condition: Yes Medical Record Reviewed: Yes Differential Diagnosis Gastroparesis versus dehydration versus DKA versus electrolyte abnormality Narrative Course Patient is a 62-year-old female comes in complaining of nausea and vomiting. She says this feels exactly like her gastroparesis. Abdomen is soft and nontender on exam. IV established, labs sent. Labs show an anion gap of 9, glucose is 192. Patient given IV fluids, Zofran, Reglan. She reports feeling much better. She is drinking water without vomiting. She is given a prescription for Reglan. Advised follow-up with her doctors. Advised return to the ED as needed for any worsening symptoms. Diagnosis Primary Impression: Gastroparesis Patient Instructions: Gastroparesis (ED), General Instructions Additional Instructions: Take Reglan as needed for nausea. Follow up with your doctors. Return to the ED as needed for any worsening symptoms. Scripts Metoclopramide (Reglan) 10 Mg Tab 10 MG PO QID for Nausea, #15 TAB 0 Refills Prov: Tamera Fang MD 07/06/17 Disposition: 01 DISCHARGE HOME Condition: Stable Tamera Fang MD Jul 06, 2017 23:53
[2017-07-07 00:16] VITALS: BP 124/62; PULSE 100; RESP 16; O2SAT 98
[2017-07-07 00:20] VITALS: BP 125/74; TEMP 97.8
== END 2017-07-07 00:21 | disposition home or self-care (01) ==
LOC: PHED 19:55
DX: K31.84 Gastroparesis (principal); R19.7 Diarrhea, unspecified; E11.9 Type 2 diabetes mellitus without complications; I10 Essential (primary) hypertension; E78.00 Pure hypercholesterolemia, unspecified; K21.9 Gastro-esophageal reflux disease without esophagitis; G47.30 Sleep apnea, unspecified; Z79.4 Long term (current) use of insulin
CPT/HCPCS: 80048; 80076; 82010; 83690; 85025; 85610; 85730; 96361; 96365; 96375; 99284; J2405; J2765; J7030

== ENCOUNTER 2017-07-07 01:41 | Emergency (ER) | payer OTHER ==
[~2017-07-07] VITALS: Ht 167.6 cm; Wt 85.2 kg
[~2017-07-07 01:41] MED LIST changes: +REGL10TA5 PO
[2017-07-07 01:46] VITALS: BP 172/91; PULSE 105; RESP 20; TEMP 98.7; O2SAT 96
--- NOTE | 2017-07-07 01:53 | PD ---
HPI Chief Complaint: GI Complaint Time Seen by Provider: 02:04 Travel History International Travel<30 days: No Contact w/Intl Traveler<30days: No Traveled to known affect area: No History of Present Illness HPI Patient is a 62-year-old female with a history of diabetic gastroparesis presents emergency department for evaluation of intractable nausea and vomiting. She was discharged from his ER a few hours ago having her nausea vomiting was controlled using Reglan. Patient states that since she got home she started throwing up again. States her abdomen is a little bit distended but not painful. States symptoms are severe, for the past day, no diarrhea no constipation. PFSH Past Medical History Arthritis: No Asthma: No Heart Rhythm Problems: No Cancer: No Cardiovascular Problems: Yes High Cholesterol: Yes Chest Pain: No Congestive Heart Failure: No COPD: No Cerebrovascular Accident: No Diabetes: Yes (HAS PUMP) Diminished Hearing: No Endocrine: No GERD: Yes Genitourinary: No Hiatal Hernia: No Hypertension: Yes Kidney Stones: No Musculoskeletal: No Neurologic: No Psychiatric: No Reproductive: No Respiratory: No Migraines: No Renal Failure: No Seizures: No Sickle Cell Disease: No Sleep Apnea: Yes Ulcer: No ?: Not Menopausal: Yes Tubal Ligation: Yes Past Surgical History AICD: No Arteriovenous Shunt: No Cardiac Surgery: No Section: Yes Ear Surgery: No Endocrine Surgery: No Eye Surgery: No Genitourinary Surgery: No Gynecologic Surgery: Yes Insulin Pump: Yes Joint Replacement: No Oral Surgery: No Pacemaker: No Thoracic Surgery: No Tonsillectomy: Yes Other Surgery: Yes Social History Alcohol Use: Yes (OCC) Tobacco Use: No Substance Use: No Allergies-Medications (Allergen,Severity, Reaction): Coded Allergies: iodine (Unverified Allergy, Mild, Nausea/Vomiting, 07/07/17) potassium iodide (Unverified Allergy, Mild, Nausea/Vomiting, 07/07/17) povidone-iodine (Unverified Allergy, Mild, Nausea/Vomiting, 07/07/17) sodium iodide (Unverified Allergy, Mild, Nausea/Vomiting, 07/07/17) sodium iodide (Unverified Allergy, Mild, Nausea/Vomiting, 07/07/17) Uncoded Allergies: SHELLFISH (Allergy, Mild, Nausea/Vomiting, 02/07/03) Reported Meds & Prescriptions Reported Meds & Active Scripts Active Reglan (Metoclopramide HCl) 10 Mg Tab 10 Mg PO QID Zofran (Ondansetron HCl) 4 Mg Tab 4 Mg PO Q6HR PRN Reported [Motilium] 1 Tab PO DAILY Atorvastatin (Atorvastatin Calcium) 10 Mg Tab 10 Mg PO HS Novolog Mix 70/30 Inj (Insulin Aspart Prota 70%/Aspart 30%) 1,000 Units/10 Ml Inj 1 Unit SQ CONTINUOUS Lisinopril 5 Mg Tab 5 Mg PO DAILY Omeprazole 20 Mg Tab 20 Mg PO DAILY Review of Systems Except as stated in HPI: all other systems reviewed are Neg Physical Exam Narrative GENERAL: Well-developed, well-nourished, actively retching. SKIN: Focused skin assessment warm/dry. HEAD: Atraumatic. Normocephalic. EYES: Pupils equal and round. No scleral icterus. No injection or drainage. ENT: No nasal bleeding or discharge. Mucous membranes pink and moist. NECK: Trachea midline. No JVD. CARDIOVASCULAR: Regular rate and rhythm. No murmur appreciated. RESPIRATORY: No accessory muscle use. Clear to auscultation. Breath sounds equal bilaterally. GASTROINTESTINAL: Abdomen soft, non-tender, nondistended. Hepatic and splenic margins not palpable. Hypoactive to absent bowel sounds MUSCULOSKELETAL: No obvious deformities. No clubbing. No cyanosis. No edema. NEUROLOGICAL: Awake and alert. No obvious cranial nerve deficits. Motor grossly within normal limits. Normal speech. PSYCHIATRIC: Appropriate mood and affect; insight and judgment normal. Data Data Last Documented VS Vital Signs Date Time Temp Pulse Resp B/P (MAP) Pulse Ox O2 Delivery O2 Flow Rate FiO2 07/07/17 08:18 62 18 138/74 (95) 97 07/07/17 06:40 Room Air 07/07/17 01:46 98.7 Orders Orders Abdomen, Upright Only (07/07/17 ) Lorazepam Inj (Ativan Inj) (07/07/17 02:00) Ct Abd/Pel W/O Iv Contrast (07/07/17 ) Ondansetron Inj (Zofran Inj) (07/07/17 02:45) Sodium Chlor 0.9% 1000 Ml Inj (Ns 1000 M (07/07/17 05:30) Ed Discharge Order (07/07/17 06:24) MDM Medical Decision Making Medical Screen Exam Complete: Yes Emergency Medical Condition: Yes Differential Diagnosis Gastritis, gastroparesis, nausea, vomiting, electrolyte abnormality seems unlikely per Narrative Course Patient was roomed in the ER. Had two episodes of retching. She was given 0.5mg Ativan and 8mg Zofran IV and NS bolus. She did not have any additional retching after medication for 5 hours. Patient reassessed multiple times by me , fairly somnolent after meds but on reassess at 0630 patient more alert and states that she is feeling better. Labs are reviewed from previous visit today , mildly anemic macrocytic indices but white count normal, chemistries showed an elevated glucose mildly decreased sodium to 134 but otherwise unremarkable. At this time i recommended another trial of outpatient therapy and she is agreeable. Discussed return to ED criteria and follow up with PCP. Stable for discharge. Diagnosis Primary Impression: Nausea & vomiting Disposition: 01 DISCHARGE HOME Condition: Stable Jose Santana MD Jul 07, 2017 01:53
[2017-07-07] MEDS ORDERED: LORazepam 2 MG/ML VIAL IV PUSH ONE (02:00)
[2017-07-07] MEDS ORDERED: ONDANSETRON HCL 4 MG/2 ML VIAL IV PUSH ONE ×3 (02:00→02:45)
[2017-07-07] MEDS ORDERED: ONDANSETRON INJ 8 MG in DEXTROSE 5% IN WATER INJ 50 ML IV PUSH ONE ×4 (02:30)
[2017-07-07 02:51] VITALS: PULSE 108; RESP 16; O2SAT 97
--- NOTE | 2017-07-07 03:24 | RADRPT ---
EXAM DATE/TIME: 07/07/2017 02:10 [facility] COMPARISON: No previous studies available for comparison. INDICATIONS : Nausea, vomiting, abdominal pain for 12 hours MEDICAL HISTORY : Diabetes mellitus type II. Gastroparesis SURGICAL HISTORY : Tubal ligation. ENCOUNTER: Initial ACUITY: 1 day PAIN SCORE: 10/10 LOCATION: Bilateral upper quadrant FINDINGS: A single erect view of the abdomen demonstrates the lower lungs to be clear. No evidence of free int raperitoneal gas. The visualized bowel loops are unremarkable. CONCLUSION: Negative exam. Dimitri Garcia MD on July 07, 2017 at 3:22 Board Certified Radiologist. This report was verified electronically.
--- NOTE | 2017-07-07 03:50 | RADRPT ---
EXAM DATE/TIME: 07/07/2017 03:03 [place] COMPARISON: No previous studies available for comparison. INDICATIONS : Abdominal pain. Nausea. Vomiting. ORAL CONTRAST: No oral contrast ingested. RADIATION DOSE: 15.45 CTDIvol (mGy) MEDICAL HISTORY : Gastroesophageal reflux disease. Diabetes mellitus type 2. Hypertension. SURGICAL HISTORY : section. Tubal ligation. ENCOUNTER: Subsequent ACUITY: 1 day PAIN SCALE: 9/10 LOCATION: Bilateral upper quadrant TECHNIQUE: Volumetric scanning of the abdomen and pelvis was performed. Using automated exposure control and ad justment of the mA and/or kV according to patient size, radiation dose was kept as low as reasonably achievable to obtain optimal diagnostic quality images. DICOM format image data is available electro nically for review and comparison. FINDINGS: LOWER LUNGS: Mild, scattered groundglass densities in the subpleural distribution of both lung bases. LIVER: Homogeneous density without lesion. There is no dilation of the biliary tree. Linear area of increas ed density in the dependent portion of the gallbladder neck may represent small stones. SPLEEN: Normal size without lesion. PANCREAS: Within normal limits. KIDNEYS: Normal in size and shape. There is no mass, stone, or hydronephrosis. ADRENAL GLANDS: Within normal limits. VASCULAR: There is no aortic aneurysm. BOWEL/MESENTERY: The stomach, small bowel, and colon demonstrate no acute abnormality. There is no free intraperitone al air or fluid. ABDOMINAL WALL: Small, 1 Centimeter umbilical hernia which contains fat. RETROPERITONEUM: There is no lymphadenopathy. BLADDER: No wall thickening or mass. REPRODUCTIVE: Within normal limits. Surgical clips on the fallopian tubes characteristic of a reported history of t ubal ligation. INGUINAL: There is no lymphadenopathy or hernia. MUSCULOSKELETAL: Within normal limits for patient age. CONCLUSION: 1. Possible small gallstones in the dependent portion of the gallbladder lumen. 2. 1 cm umbilical hernia only contains fat. 3. Subpleural groundglass densities in both lung bases are nonspecific but are suggestive of a mild, benign inflammatory process. No confluent infiltrate. Dimitri Garcia MD on July 07, 2017 at 3:42 Board Certified Radiologist. This report was verified electronically.
[2017-07-07 04:13] VITALS: BP 100/52; PULSE 113; RESP 16; O2SAT 96
[2017-07-07 05:18] VITALS: BP 113/49; PULSE 116; RESP 16; O2SAT 97
[2017-07-07] MEDS ORDERED: SODIUM CHLOR 0.9% 1000 ML INJ 1,000 ML IV ONE (05:30)
[2017-07-07 06:40] VITALS: BP 106/66; PULSE 114; RESP 16; O2SAT 98
[2017-07-07 08:18] VITALS: BP 138/74
== END 2017-07-07 08:23 | disposition home or self-care (01) ==
LOC: PHED 01:41
DX: R11.2 Nausea with vomiting, unspecified (principal); R14.0 Abdominal distension (gaseous); D64.9 Anemia, unspecified; E11.9 Type 2 diabetes mellitus without complications; I10 Essential (primary) hypertension; K21.9 Gastro-esophageal reflux disease without esophagitis; E78.00 Pure hypercholesterolemia, unspecified; G47.30 Sleep apnea, unspecified; Z79.4 Long term (current) use of insulin
CPT/HCPCS: 74018; 74176; 96361; 96374; 96375; 99285; J2060; J7030; J2405